=== PATIENT | male | born 1960 | race Caucasian/White ===

== ENCOUNTER 2018-11-27 19:20 | Observation (INO) | payer OTHER ==
--- NOTE | 2018-11-27 20:31 | C.PDOC ---
History Of Present Illness 57 year old male presents to ED with complaint of dizziness for the past 2 days. Patient states that there was improvement , but then the symptoms returned. Patient states that his symptoms are worse when he walks, is lying down, and is standing. Patient denies trauma, fever, chills. Time Seen by Provider: 11/27/18 20:31 Chief Complaint (Nursing): Dizziness/Lightheaded History Per: Patient History/Exam Limitations: no limitations Onset/Duration Of Symptoms: Days (2) Current Symptoms Are (Timing): Still Present Activity At Onset Of Symptoms: Lying, Sitting, Walking Seizure Or Post-ictal Symptoms: None Fall Associated With With Symptoms: No Severity: None Past Medical History Reviewed: Historical Data, Nursing Documentation, Vital Signs Vital Signs: Last Vital Signs Temp 98.4 F 11/27/18 19:28 Pulse 70 11/27/18 20:20 Resp 16 11/27/18 20:20 BP 155/93 H 11/27/18 20:20 Pulse Ox 100 11/27/18 20:20 - Medical History PMH: No Chronic Diseases Surgical History: No Surg Hx Family History: States: Unknown Family Hx - Social History Hx Alcohol Use: No Hx Substance Use: No - Immunization History Hx Tetanus Toxoid Vaccination: No Hx Influenza Vaccination: No Hx Pneumococcal Vaccination: No Review Of Systems Constitutional: Negative for: Fever, Chills Cardiovascular: Negative for: Chest Pain Gastrointestinal: Negative for: Nausea, Vomiting Neurological: Positive for: Dizziness. Negative for: Weakness, Numbness Physical Exam - Physical Exam Appears: Non-toxic, Other (speaking complete sentences) Skin: Warm, Dry Head: Atraumatic, Normacephalic Eye(s): bilateral: Normal Inspection, PERRL, EOMI, Other (no nystagmus) Ear(s): Bilateral: Normal Throat: Other (oropharynx clear) Neck: Supple Chest: Symmetrical, No Deformity Cardiovascular: Rhythm Regular, No Murmur Respiratory: No Accessory Muscle Use, No Rales, No Rhonchi, No Wheezing Gastrointestinal/Abdominal: Soft, No Tenderness Neurological/Psych: Oriented x3, Other (difficulty ambulating) ED Course And Treatment - Laboratory Results Result Diagrams: 11/27/18 20:47 11/27/18 20:47 ECG: Interpreted By Me, Viewed By Me ECG Rhythm: Sinus Rhythm (66), Nonspecific Changes O2 Sat by Pulse Oximetry: 100 (in RA) Pulse Ox Interpretation: Normal - Radiology CXR: Interpreted by Me, Viewed By Me CXR Interpretation: No: Infiltrates, Fracture, Pnemothorax - CT Scan/US Head CT Other Rad Studies (CT/US): Interpreted By Me, Read By Radiologist CT/US Interpretation: IMPRESSION: No acute intracranial abnormality. Progress Note: Head CT, EKG, and CXR. Labs ordered with CBC and troponin. Patient given Antivert PO, IV fluids, and Zofran IVP. NIHSS Stroke Scale 2 - Date/Time Evaluation Performed Date Performed: 11/27/18 Time Performed: 20:13 When Was NIHSS Performed: Baseline - How Severe is the Stroke Level of Consciousness: 0=Alert LOC to Questions: 0=Both comments correct LOC to commands: 0=Obeys both correctly Best Gaze: 0=Normal Visual: 0=No visual loss Facial: 0=Normal Motor Arm - Left: 0=No drift Motor Arm - Right: 0=No drift Motor Leg - Left: 0=No drift Motor Leg - Right: 0=No drift Limb Ataxia: 0=Absent Sensory: 0=Normal Best Language: 0=No aphasia Dysarthia: 0=Normal articulation Extinction & Inattention (Neglect): 0=Normal, no object Score: 0 Disposition Discussed With : Mounika Rosado Comment: accepted the pt on his service and took over the care at 11:12 PM Doctor Will See Patient In The: Hospital Counseled Patient/Family Regarding: Studies Performed, Diagnosis - Disposition Disposition: HOSPITALIZED Disposition Time: 00:00 Condition: FAIR Forms: [facility] (Pashto) - POA Present On Arrival: None - Clinical Impression Clinical Impression: Dizziness, Ambulatory dysfunction, Tinnitus - Scribe Statement The provider has reviewed the documentation as recorded by the Scribe (Milla Vasquez) All medical record entries made by the Scribe were at my direction and personally dictated by me. I have reviewed the chart and agree that the record accurately reflects my personal performance of the history, physical exam, medical decision making, and the department course for this patient. I have also personally directed, reviewed, and agree with the discharge instructions and disposition. Decision To Admit - Pt Status Changed To: Hospital Disposition Of: Observation - . Bed Request Type: Regular Admitting Physician: Mounika Rosado Patient Diagnosis: Dizziness, Ambulatory dysfunction, Tinnitus
[2018-11-27 20:52] LABS: BASO % 0.6 % (0.0-2.0); EOS # 0.2 K/uL (0.0-0.7); EOS % 2.2 % (0.0-4.0); HEMOGLOBIN 18.3 g/dL (12.0-18.0); LYMPH # 2.1 K/uL (1.0-4.3); LYMPH % 27.1 % (20.0-40.0); MEAN CELL VOLUME 85.7 fL (80.0-94.0); MEAN CORPUSCULAR HEMOGLOBIN 28.5 pg (27.0-31.0); MEAN CORPUSCULAR HGB CONC 33.3 g/dL (33.0-37.0); MEAN PLATELET VOLUME 9.7 fL (7.2-11.7); MONO # 0.4 K/uL (0.0-0.8); MONO % 5.2 % (0.0-10.0); NEUT # 4.9 K/uL (1.8-7.0); NEUT % 64.9 % (50.0-75.0); RBC 6.41 Mil/uL (4.40-5.90); RED CELL DISTRIBUTION WIDTH 14.7 % (11.5-14.5); WHITE BLOOD COUNT 7.6 K/uL (4.8-10.8)
[2018-11-27 21:04] LABS: ALB/GLOB RATIO 1.7 (1.0-2.1); ALBUMIN 4.7 g/dL (3.5-5.0); ALT/SGPT 22 U/L (21-72); AST/SGOT 22 U/L (17-59); BLOOD UREA NITROGEN 11 mg/dL (9-20); CALCIUM 9.6 mg/dl (8.6-10.4); GFR NON-AFRICAN AMERICAN > 60
[2018-11-27] MEDS ORDERED: Sodium Chloride 0.9% 1,000 ML IV ONE (21:23)
[2018-11-27 21:59] LABS: URINE BILIRUBIN NEGATIVE (NEGATIVE); URINE BLOOD NEGATIVE (NEGATIVE); URINE CLARITY Clear (Clear); URINE COLOR Yellow (YELLOW); URINE GLUCOSE (UA) NORMAL (Normal); URINE LEUKOCYTE ESTERASE NEG Leu/uL (Negative); URINE PROTEIN NEGATIVE (NEGATIVE); URINE UROBILINOGEN NORMAL mg/dL (0.2-1.0)
[2018-11-28] MEDS ORDERED: Iodixanol 320 MG/ML 100 ML BOTTLE IV ONE (00:13)
[2018-11-28 05:32] LABS: CK-MB 0.46 ng/mL (0.0-3.38); TROPONIN I 0.012 ng/mL (0.00-0.120)
--- NOTE | 2018-11-28 08:05 | CP.PCM.HP ---
History of Present Illness - History of Present Illness History of Present Illness: 57-year-old male with no significant past medical history like diabetes or hypertension came because of dizziness which started around 2 days ago especially feels like he is spinning with little improvement and eventually patient came to the emergency room and was hospitalized patient blood pressure on arrival was 115/93 patient denies any signs symptoms of URI patient denies any TIA-like symptoms patient denies any trauma patient denies nausea vomiting fever chills chest pain patient claims the symptom is worse especially on lying down patient denies any discharge Patient's hemoglobin is 11.[address] scan of the head no acute intracranial abnormality chest x-ray no infiltrate Present on Admission - Present on Admission Any Indicators Present on Admission: No Past Patient History - Past Social History Smoking Status: Never Smoked - PSYCHIATRIC Hx Substance Use: No - SURGICAL HISTORY Hx Surgeries: No - ANESTHESIA Hx Anesthesia: No Meds Allergies/Adverse Reactions: Allergies Allergy/AdvReac Type Severity Reaction Status Date / Time No Known Allergies Allergy Verified 11/27/18 19:31 Physical Exam - Constitutional Appears: Well - Head Exam Head Exam: ATRAUMATIC, NORMAL INSPECTION, NORMOCEPHALIC - Eye Exam Eye Exam: EOMI, Normal appearance, PERRL Pupil Exam: NORMAL ACCOMODATION, PERRL - ENT Exam ENT Exam: Mucous Membranes Moist, Normal Exam - Neck Exam Neck exam: Positive for: Normal Inspection - Respiratory Exam Respiratory Exam: Decreased Breath Sounds - Cardiovascular Exam Cardiovascular Exam: REGULAR RHYTHM, +S1, +S2 - GI/Abdominal Exam GI & Abdominal Exam: Diminished Bowel Sounds, Soft - Rectal Exam Rectal Exam: Deferred Results - Vital Signs Recent Vital Signs: Last Vital Signs Temp 97.4 F L 11/28/18 07:00 Pulse 83 11/28/18 07:00 Resp 20 11/28/18 07:00 BP 175/102 H 11/28/18 07:00 Pulse Ox 96 11/28/18 07:00 - Labs Result Diagrams: 11/27/18 20:47 11/27/18 20:47 Labs: Laboratory Results - last 24 hr 11/27/18 11/27/18 11/27/18 20:13 20:47 20:47 WBC 7.6 RBC 6.41 H Hgb 18.3 H Hct 54.9 H MCV 85.7 MCH 28.5 MCHC 33.3 RDW 14.7 H Plt Count 242 MPV 9.7 Neut % (Auto) 64.9 Lymph % (Auto) 27.1 [place] % (Auto) 5.2 Eos % (Auto) 2.2 Baso % (Auto) 0.6 Neut # (Auto) 4.9 Lymph # (Auto) 2.1 [place] # (Auto) 0.4 Eos # (Auto) 0.2 Baso # (Auto) 0.0 Sodium 138 Potassium 3.5 L Chloride 102 Carbon Dioxide 26 Anion Gap 13 BUN 11 Creatinine 1.0 Est GFR ( Amer) > 60 Est GFR (Non-Af Amer) > 60 POC Glucose (mg/dL) 113 H Random Glucose 109 Calcium 9.6 Total Bilirubin 0.8 AST 22 ALT 22 Alkaline Phosphatase 65 Total Creatine Kinase CK-MB (Mass) Troponin I < 0.0120 Total Protein 7.5 Albumin 4.7 Globulin 2.8 Albumin/Globulin Ratio 1.7 Urine Color Urine Clarity Urine pH Ur Specific [place] Urine Protein Urine Glucose (UA) Urine Ketones Urine Blood Urine Nitrate Urine Bilirubin Urine Urobilinogen Ur Leukocyte Esterase Urine WBC (Auto) Urine RBC (Auto) 11/27/18 11/28/18 21:31 04:56 WBC RBC Hgb Hct MCV MCH MCHC RDW Plt Count MPV Neut % (Auto) Lymph % (Auto) [place] % (Auto) Eos % (Auto) Baso % (Auto) Neut # (Auto) Lymph # (Auto) [place] # (Auto) Eos # (Auto) Baso # (Auto) Sodium Potassium Chloride Carbon Dioxide Anion Gap BUN Creatinine Est GFR ( Amer) Est GFR (Non-Af Amer) POC Glucose (mg/dL) Random Glucose Calcium Total Bilirubin AST ALT Alkaline Phosphatase Total Creatine Kinase 93 CK-MB (Mass) 0.46 Troponin I 0.0120 Total Protein Albumin Globulin Albumin/Globulin Ratio Urine Color Yellow Urine Clarity Clear Urine pH 5.0 Ur Specific [place] 1.010 Urine Protein Negative Urine Glucose (UA) Normal Urine Ketones Negative Urine Blood Negative Urine Nitrate Negative Urine Bilirubin Negative Urine Urobilinogen Normal Ur Leukocyte Esterase Neg Urine WBC (Auto) < 1 Urine RBC (Auto) < 1 Assessment & Plan - Assessment and Plan (Free Text) Plan: CT scan negative no chest x-ray Chest x-ray normal gi and dvt prophylaxis Antivert Neurology consultations who has ordered MRI to rule out [employer] stroke Meclizine every 8 Plavix Lisinopril 5 mg daily Monitor the blood pressure Follow-up with neurologist recommendations Carotid Doppler kcl supplemnetation
[2018-11-28] MEDS: Nitroglycerin 2% Ointment Foilpak UD TOP PRN (08:38)
--- NOTE | 2018-11-28 08:45 | CT ---
Date of service: 11/27/2018 PROCEDURE: CT HEAD WITHOUT CONTRAST. HISTORY: dizziness COMPARISON: None available. TECHNIQUE: Axial computed tomography images were obtained through the head/brain without intravenous contrast. Radiation dose: Total exam DLP = 952.56 mGy-cm. This CT exam was performed using one or more of the following dose reduction techniques: Automated exposure control, adjustment of the mA and/or kV according to patient size, and/or use of iterative reconstruction technique. FINDINGS: HEMORRHAGE: No intracranial hemorrhage. BRAIN: No mass effect or edema. No atrophy or chronic microvascular ischemic changes. VENTRICLES: Unremarkable. No hydrocephalus. CALVARIUM: Unremarkable. PARANASAL SINUSES: Mild mucosal thickening and opacification of the sphenoid sinus. MASTOID AIR CELLS: Unremarkable as visualized. No inflammatory changes. OTHER FINDINGS: None. IMPRESSION: No acute intracranial abnormality. Mild sinus mucosal disease. If symptoms persists, consider correlation with MRI. A preliminary report was generated at 9:12 p.m. on 11/27/[address] Dante Bourgeois from [facility].
[2018-11-28] MEDS: Potassium Chloride 10 mEq ER Tab PO SCH (09:17)
[2018-11-28] MEDS: Enoxaparin 40 mg Syringe SC SCH (09:17)
--- NOTE | 2018-11-28 09:41 | RAD ---
Date of service: 11/27/2018 HISTORY: Shortness of breath COMPARISON: None available. TECHNIQUE: 1 view obtained. FINDINGS: LUNGS: Small 6 millimeter nodular density seen in the lateral aspect of the right midlung zone. This may represent confluence of shadows with ribs and vessels however correlation with prior x-ray and or chest CT would be helpful for further evaluation to exclude pulmonary nodule. PLEURA: No significant pleural effusion identified, no pneumothorax apparent. CARDIOVASCULAR: No aortic atherosclerotic calcification present. Normal cardiac size. No pulmonary vascular congestion. OSSEOUS STRUCTURES: No significant abnormalities. VISUALIZED UPPER ABDOMEN: Normal. OTHER FINDINGS: None. IMPRESSION: Small 6 millimeter nodular density seen in the lateral aspect of the right midlung zone. This may represent confluence of shadows with ribs and vessels however correlation with prior x-ray and or chest CT would be helpful for further evaluation to exclude pulmonary nodule. This case was placed in the PA review folder.
--- NOTE | 2018-11-28 09:58 | CP.PCM.PN ---
Subjective - Date & Time of Evaluation Date of Evaluation: 11/28/18 Time of Evaluation: 09:56 - Subjective Subjective: Medicine Progress Note: Patient seen and examined at bedside. Per nursing no acute events occurred overnight .Patient denies any fevers, chills, headaches, dizziness, changes in vision, abdominal pain, or any other complaints. Objective - Vital Signs/Intake and Output Vital Signs (last 24 hours): Temp Pulse Resp BP Pulse Ox 97.4 F L 81 20 158/96 H 96 11/28/18 07:00 11/28/18 09:16 11/28/18 07:00 11/28/18 09:16 11/28/18 07:00 - Medications Medications: Current Medications Clopidogrel Bisulfate (Plavix) 75 mg PO DAILY [facility] Last Admin: 11/28/18 09:17 Dose: 75 mg Enoxaparin Sodium (Lovenox) 40 mg SC DAILY [facility] Last Admin: 11/28/18 09:17 Dose: 40 mg Famotidine (Pepcid) 20 mg PO BID [facility] Last Admin: 11/28/18 09:17 Dose: 20 mg Lisinopril (Zestril) 5 mg PO DAILY [facility] Last Admin: 11/28/18 09:17 Dose: 5 mg Meclizine HCl (Antivert) 25 mg PO Q8 [facility] Last Admin: 11/28/18 06:27 Dose: 25 mg Nitroglycerin (Nitro-Bid 2% Oint) 1 ea TOP Q6H PRN PRN Reason: Sbp greater than 160 Last Admin: 11/28/18 08:38 Dose: 1 ea Potassium Chloride (Klor-Con 10) 10 meq PO BRK [facility] Last Admin: 11/28/18 09:17 Dose: 10 meq - Labs Labs: 11/27/18 20:47 11/27/18 20:47 - Head Exam Head Exam: ATRAUMATIC, NORMAL INSPECTION - Eye Exam Eye Exam: EOMI, Normal appearance, PERRL Pupil Exam: NORMAL ACCOMODATION - ENT Exam ENT Exam: Mucous Membranes Moist, Normal Oropharynx - Respiratory Exam Respiratory Exam: Clear to Ausculation Bilateral, NORMAL BREATHING PATTERN. absent: Prolonged Expiratory Phase, Respiratory Distress - Cardiovascular Exam Cardiovascular Exam: REGULAR RHYTHM, +S1 - GI/Abdominal Exam GI & Abdominal Exam: Soft, Normal Bowel Sounds. absent: Hyperactive Bowel Sounds - Back Exam Back Exam: NORMAL INSPECTION. absent: CVA tenderness (R), paraspinal tenderness - Neurological Exam Neurological Exam: Alert, Awake, CN II-XII Intact, Oriented x3 - Psychiatric Exam Psychiatric exam: Normal Affect, Normal Mood - Skin Skin Exam: Dry, Intact. absent: Diaphoretic, Pallor Assessment and Plan - Assessment and Plan (Free Text) Plan: Dizziness Troponin (-)x2. Will f/u with final troponin Head ct:No acute intracranial abnormality.Mild sinus mucosal disease.If symptoms persists, consider correlation with MRI. CTA Head/Neck: There is no evidence of dissection, occlusion or significant stenosis. Marked asymmetry of the vertebral arteries right-sided which is hypoplastic compared to the left side. Note is made of an elliptical shaped mass lesion right lung apex which is of uncertain etiology and may be postinflammatory however neoplasm must be excluded. Recommend follow-up CT scan of the chest.. Biopsy should be considered as well to exclude primary carcinoma.. Biapical pleural thickening and parenchymal scarring right greater than left Brain MRI ordered. Will f/u with results. Echocardiogram ordered. Will f/u with results. Chest ct ordered .Will f/u with results Thyroid, hemoglobin a1c, and Homocysteine levels ordered. Will f/u with results. Neurology Dr. Bradford consulted--> Help appreciated Medications: Antivert 25mg PO Q8 Polycythemia -Hgb: 18.3 on admission -Heme/onc Dr. Prasad consulted--> Help appreciated. Ellipitcal shaped mass lesion right lung apex -Chest ct ordered. Will f/u with results. PPX -Lovenox 40mg SC DAILY -Pepcid 20mg PO BID Dispo: F/u with Chest ct, brain mri and echocardiogram final reads. Plan discussed with Attending Dr. Mary Rosado. Sheng Sanchez, PGY-2
[2018-11-28] MEDS ORDERED: Influenza Vaccine 60 mcg/0.5 mL SYR (4YR UP) IM ONE (10:00)
--- NOTE | 2018-11-28 12:53 | CT ---
Date of service: 11/28/2018 PROCEDURE: CT Angiography of the neck and brain with contrast HISTORY: Dizziness COMPARISON: None. TECHNIQUE: Contiguous axial images of the neck and brain were obtained from the level of the vertex of the skull to the superior mediastinum in the arteriographic phase of enhancement. Coronal and sagittal reformats or also generated. IV contrast dose: Radiation dose: Total exam DLP = 563.43 mGy-cm. This CT exam was performed using one or more of the following dose reduction techniques: Automated exposure control, adjustment of the mA and/or kV according to patient size, and/or use of iterative reconstruction technique. FINDINGS: The aortic arch and origins of the great vessels widely patent with no significant calcified atherosclerotic plaque disease. The common carotid arteries are also widely patent without evidence of significant stenosis or dissection. The distal internal carotid arteries including the petrous cavernous and supraclinoid segments also widely patent. Both vertebral arteries are patent throughout left-sided which is much larger in caliber/more dominant than the hypoplastic appearing right vertebral artery. The distal basilar artery is diminutive in size although patent. There is asymmetry of the A1 segments right-side of which is hypoplastic in appearance. The distal branches of the anterior middle and posterior cerebral arteries are patent and relatively symmetric in size. No evidence of large vascular malformation. OTHER FINDINGS: There is an elliptical shaped 19 mm x 11 mm parenchymal nodule right lung apex with some associated scarring and or spiculation along its superior and medial borders. Neoplasm should be excluded. Recommend follow-up CT scan of the chest. Consider follow-up biopsy. Biopsy or PET-CT scan. Note made of chronic pleural thickening and parenchymal scarring both lung apices right greater than left.. IMPRESSION: There is no evidence of dissection, occlusion or significant stenosis. Marked asymmetry of the vertebral arteries right-sided which is hypoplastic compared to the left side. Note is made of an elliptical shaped mass lesion right lung apex which is of uncertain etiology and may be postinflammatory however neoplasm must be excluded. Recommend follow-up CT scan of the chest.. Biopsy should be considered as well to exclude primary carcinoma.. Biapical pleural thickening and parenchymal scarring right greater than left Note that this report was placed in PA review folder for follow up. Case also discussed with emergency room WILLIAN Feliz at approximately 12:46 p.m. with written down and read back verification.
--- NOTE | 2018-11-28 14:00 | MRI ---
Date of service: 11/28/2018 PROCEDURE: MRI BRAIN WITHOUT CONTRAST HISTORY: [facility] - [employer] COMPARISON: Comparison made with prior CT scan and CTA brain dated earlier same day TECHNIQUE: Multiplanar, multisequence MR images of the brain were obtained without intravenous contrast enhancement. FINDINGS: HEMORRHAGE: No acute parenchymal, subarachnoid or extra-axial hemorrhage. No evidence of hemosiderin deposition identified on gradient echo weighted sequence. DWI: No evidence of an acute or early subacute infarction seen on diffusion imaging.. BRAIN PARENCHYMA: Mild periventricular white matter ischemic changes are present most notably in the Claudine frontal horn regions. In addition, there are multiple more discrete chronic appearing ischemic changes scattered about the deep and subcortical white matter of both cerebral hemispheres right greater than left. None of the changes exhibit restricted diffusion. No obvious parenchymal nor extra-axial mass or collection seen on this noncontrast exam. Scattered the numerous tiny perivascular spaces seen within the basal nuclei and to a lesser degree deep white matter both cerebral hemispheres. Incidental note is made of a curvilinear focus of increased T2 signal in the right thalamus that is of uncertain etiology however the possibility of a incidental small venous angioma cannot be completely excluded. Mild superior parietal cortical atrophic changes VENTRICLES: No obstructive hydrocephalus. CRANIUM: Unremarkable. ORBITS: Orbits and contents grossly unremarkable. PARANASAL SINUSES/MASTOIDS: Note again made of a mucous retention cyst or left maxillary antrum. Minor mucosal thickening also noted left chamber sphenoid sinus. VASCULAR SYSTEM: Visualized major vascular flow voids at skull base patent. OTHER FINDINGS: None. IMPRESSION: No acute intracranial hemorrhage or infarction. Mild chronic white matter ischemic changes as described. Mild superior parietal cortical atrophic changes Questionable small venous angioma right thalamus
--- NOTE | 2018-11-28 14:07 | VASCLAB ---
Date of service: 11/28/2018 PROCEDURE: Carotid Duplex Exam. HISTORY: ASSESS STENOSIS COMPARISON: None available. TECHNIQUE: Grayscale and duplex Doppler evaluation of the cervical carotid and vertebral arteries were performed. The common carotid, carotid bifurcations and cervical Internal Carotid Artery (ICA) and proximal External Carotid Artery (ECA) were evaluated. The vertebral arteries were evaluated for gross patency and flow direction. Report prepared by Santhosh Pedroza, BS, RVT FINDINGS: RIGHT CAROTID ARTERIES: 1. Common Carotid Artery: No significant focal plaque formation of the right common carotid artery. Maximum Peak Systolic velocity: 85 cm/sec: End-diastolic velocity 19 cm/sec. 2. Carotid Bifurcation: plaque formation. Maximum Peak Systolic velocity: 77 cm/sec: End-diastolic velocity 17 cm/sec. 3. Internal Carotid Artery: Plaque description: 3.1. Proximal Segment: Peak systolic velocity 59 cm/sec: End-diastolic velocity 15 cm/sec - % stenosis 0-15% 3.2. Middle Segment: Peak systolic velocity 58 cm/sec: End-diastolic velocity 20 cm/sec - % stenosis 0-15% 3.3. Distal Segment: Peak systolic velocity 51 cm/sec: End-diastolic velocity 19 cm/sec - % stenosis 0-15% 4. External Carotid Artery: No significant focal plaque formation. Peak systolic velocity 104 cm/sec 5. ICA/CCA Ratio: 0.9 LEFT CAROTID ARTERIES: 1. Common Carotid Artery: No significant focal plaque formation of the left common carotid artery. Maximum Peak Systolic velocity: 103 cm/sec: End-diastolic velocity 23 cm/sec. 2. Carotid Bifurcation: plaque formation. Maximum Peak Systolic velocity: 76 cm/sec: End-diastolic velocity 17 cm/sec. 3. Internal Carotid Artery: Plaque description: 3.1. Proximal Segment: Peak systolic velocity 84 cm/sec: End-diastolic velocity 23 cm/sec - % stenosis 0-15% 3.2. Middle Segment: Peak systolic velocity 64 cm/sec: End-diastolic velocity 27 cm/sec - % stenosis 0-15% 3.3. Distal Segment: Peak systolic velocity 72 cm/sec: End-diastolic velocity 22 cm/sec - % stenosis 0-15% 4. External Carotid Artery: No significant focal plaque formation. Peak systolic velocity 145 cm/sec 5. ICA/CCA Ratio: 0.8 VERTEBRAL ARTERIES: 1. Right Vertebral Artery: The right vertebral artery flow direction is antegrade. 2. Left Vertebral Artery: The left vertebral artery flow direction is antegrade. OTHER FINDINGS: 1. Right Brachial Blood pressure: 136 mmHg. 2. Left Brachial Blood pressure: 130 mmHg. 3. No atherosclerotic calcification present IMPRESSION: RIGHT: Duplex scan does not suggest hemodynamically significant stenosis of the right extracranial carotid arteries. LEFT: Duplex scan does not suggest hemodynamically significant stenosis of the left extracranial carotid arteries.
--- NOTE | 2018-11-28 14:23 | CP.PCM.CON ---
History of Present Illness - History of Present Illness History of Present Illness: CONSULT DICTATED ASTASIA ABASALIS - ? THALAMIC / CEREBELLAR DYSFUNCTION CBC - POLYCYTHEMIA STROKE PROPHYLAXIS HEMATOLOGY CONSULTATION PT Past Patient History - Past Social History Smoking Status: Never Smoked - PSYCHIATRIC Hx Substance Use: No - SURGICAL HISTORY Hx Surgeries: No - ANESTHESIA Hx Anesthesia: No Meds Allergies/Adverse Reactions: Allergies Allergy/AdvReac Type Severity Reaction Status Date / Time No Known Allergies Allergy Verified 11/27/18 19:31 - Medications Medications: Current Medications Clopidogrel Bisulfate (Plavix) 75 mg PO DAILY [facility] Last Admin: 11/28/18 09:17 Dose: 75 mg Enoxaparin Sodium (Lovenox) 40 mg SC DAILY [facility] Last Admin: 11/28/18 09:17 Dose: 40 mg Famotidine (Pepcid) 20 mg PO BID [facility] Last Admin: 11/28/18 09:17 Dose: 20 mg Lisinopril (Zestril) 5 mg PO DAILY [facility] Last Admin: 11/28/18 09:17 Dose: 5 mg Losartan Potassium (Cozaar) 25 mg PO DAILY [facility] Meclizine HCl (Antivert) 25 mg PO Q8 [facility] Last Admin: 11/28/18 13:43 Dose: 25 mg Nitroglycerin (Nitro-Bid 2% Oint) 1 ea TOP Q6H PRN PRN Reason: Sbp greater than 160 Last Admin: 11/28/18 08:38 Dose: 1 ea Pneumococcal Polyvalent Vaccine (Pneumovax 23 Vaccine) 0.5 ml IM .ONCE ONE Stop: 11/29/18 10:01 Potassium Chloride (Klor-Con 10) 10 meq PO BRK [facility] Last Admin: 11/28/18 09:17 Dose: 10 meq Rosuvastatin Calcium (Crestor) 10 mg PO HS [facility] Results - Vital Signs Recent Vital Signs: Last Vital Signs Temp 97.4 F L 11/28/18 07:00 Pulse 81 11/28/18 09:16 Resp 20 11/28/18 07:00 BP 158/96 H 11/28/18 09:16 Pulse Ox 96 11/28/18 07:00 - Labs Result Diagrams: 11/27/18 20:47 11/27/18 20:47 Labs: Laboratory Results - last 24 hr 11/27/18 11/27/18 11/27/18 20:13 20:47 20:47 WBC 7.6 RBC 6.41 H Hgb 18.3 H Hct 54.9 H MCV 85.7 MCH 28.5 MCHC 33.3 RDW 14.7 H Plt Count 242 MPV 9.7 Neut % (Auto) 64.9 Lymph % (Auto) 27.1 [place] % (Auto) 5.2 Eos % (Auto) 2.2 Baso % (Auto) 0.6 Neut # (Auto) 4.9 Lymph # (Auto) 2.1 [place] # (Auto) 0.4 Eos # (Auto) 0.2 Baso # (Auto) 0.0 Sodium 138 Potassium 3.5 L Chloride 102 Carbon Dioxide 26 Anion Gap 13 BUN 11 Creatinine 1.0 Est GFR ( Amer) > 60 Est GFR (Non-Af Amer) > 60 POC Glucose (mg/dL) 113 H Random Glucose 109 Calcium 9.6 Total Bilirubin 0.8 AST 22 ALT 22 Alkaline Phosphatase 65 Total Creatine Kinase CK-MB (Mass) Troponin I < 0.0120 Total Protein 7.5 Albumin 4.7 Globulin 2.8 Albumin/Globulin Ratio 1.7 Urine Color Urine Clarity Urine pH Ur Specific [place] Urine Protein Urine Glucose (UA) Urine Ketones Urine Blood Urine Nitrate Urine Bilirubin Urine Urobilinogen Ur Leukocyte Esterase Urine WBC (Auto) Urine RBC (Auto) 11/27/18 11/28/18 11/28/18 21:31 04:56 13:58 WBC RBC Hgb Hct MCV MCH MCHC RDW Plt Count MPV Neut % (Auto) Lymph % (Auto) [place] % (Auto) Eos % (Auto) Baso % (Auto) Neut # (Auto) Lymph # (Auto) [place] # (Auto) Eos # (Auto) Baso # (Auto) Sodium Potassium Chloride Carbon Dioxide Anion Gap BUN Creatinine Est GFR ( Amer) Est GFR (Non-Af Amer) POC Glucose (mg/dL) Random Glucose Calcium Total Bilirubin AST ALT Alkaline Phosphatase Total Creatine Kinase 93 70 CK-MB (Mass) 0.46 Troponin I 0.0120 Total Protein Albumin Globulin Albumin/Globulin Ratio Urine Color Yellow Urine Clarity Clear Urine pH 5.0 Ur Specific [place] 1.010 Urine Protein Negative Urine Glucose (UA) Normal Urine Ketones Negative Urine Blood Negative Urine Nitrate Negative Urine Bilirubin Negative Urine Urobilinogen Normal Ur Leukocyte Esterase Neg Urine WBC (Auto) < 1 Urine RBC (Auto) < 1
[2018-11-28 14:31] LABS: CK-MB 0.34 ng/mL (0.0-3.38)
[2018-11-28 14:37] LABS: FREE T4 0.83 ng/dL (0.78-2.19)
[2018-11-28 15:25] LABS: FOLATE 6.7 ng/mL
--- NOTE | 2018-11-28 17:29 | CT ---
Date of service: 11/28/2018 CT chest without IV contrast Indication: pulmonary lesion Technique: Contiguous axial images were obtained through the chest without intravenous contrast enhancement. Sagittal and coronal reconstructions were generated and reviewed. This CT exam was performed using 1 or more of the following dose reduction techniques: Automated exposure control, adjustment of the MAA and/or kV according to patient size, and/or use of iterative reconstruction technique. Radiation dose (DLP): 646.89 MGy-cm. Comparison: Chest x-ray performed 11/27/18 Findings: Visualized portions of the inferior thyroid gland appear unremarkable. The mediastinal and hilar vascular structures appear within normal limits. The heart appears within normal limits of size. Right apical scarring/fibrosis. Mild dependent bibasilar atelectasis. No pleural effusion. No pneumothorax. 6 x 10 mm right upper lobe calcified nodule (series 4, image 46). 10 mm right upper lobe noncalcified nodule (image 31). Small hiatal hernia/distal esophageal wall thickening. Limited visualization of the noncontrast upper abdomen: 2.5 x 3.1 cm low-density right renal mass measures approximately 23 Hounsfield units, indeterminate. Bilateral gynecomastia. Impression: 10 mm right upper lobe noncalcified nodule. Recommend further evaluation with biopsy, PET- CT, or follow-up CT at 3 months, and 9 months, and 24 months. 6 x 10 mm right upper lobe calcified nodule. Right apical scarring/fibrosis. Mild dependent bibasilar atelectasis. 2.5 x 3.1 cm low-density right renal mass measures approximately 23 Hounsfield units, indeterminate. Recommend correlation with renal ultrasound. Small hiatal hernia/distal esophageal wall thickening.
--- NOTE | 2018-11-28 18:26 | CP.PCM.CON ---
History of Present Illness - History of Present Illness History of Present Illness: 57 year old male with a history of HTN, DM, presenting with vertigo, found to have elevated BP and erythrocytosis. The patient notes to vertigo for 2 days and came to the hospital. He was found to have an elevated BP and hgb of 18.3. He denies blood problems in the past. He denies abnormal bleeding and bruising. A CT chest revealed a RUL 1cm lesion and a 2.5cm right renal lesion. Past medical history: DM, HTN Past surrgical history: Denies Family history: Denies hematologic and oncologic problems Social history: Denies tobacco, alcohol, and illicit drug use. Allergies: NKA Review of systems: All remaining review of systems including HEENT, cardiovascular, respiratory, gastrointestinal, genitourinary, musculoskeletal, dermatologic, neurologic, and psychiatric are negative unless mentioned in the HPI. Past Patient History - Past Social History Smoking Status: Never Smoked - PSYCHIATRIC Hx Substance Use: No - SURGICAL HISTORY Hx Surgeries: No - ANESTHESIA Hx Anesthesia: No Meds Allergies/Adverse Reactions: Allergies Allergy/AdvReac Type Severity Reaction Status Date / Time No Known Allergies Allergy Verified 11/27/18 19:31 - Medications Medications: Current Medications Clopidogrel Bisulfate (Plavix) 75 mg PO DAILY [facility] Last Admin: 11/28/18 09:17 Dose: 75 mg Enoxaparin Sodium (Lovenox) 40 mg SC DAILY [facility] Last Admin: 11/28/18 09:17 Dose: 40 mg Famotidine (Pepcid) 20 mg PO BID [facility] Last Admin: 11/28/18 17:53 Dose: 20 mg Lisinopril (Zestril) 5 mg PO DAILY [facility] Last Admin: 11/28/18 09:17 Dose: 5 mg Losartan Potassium (Cozaar) 25 mg PO DAILY [facility] Meclizine HCl (Antivert) 25 mg PO Q8 [facility] Last Admin: 11/28/18 13:43 Dose: 25 mg Nitroglycerin (Nitro-Bid 2% Oint) 1 ea TOP Q6H PRN PRN Reason: Sbp greater than 160 Last Admin: 11/28/18 08:38 Dose: 1 ea Pneumococcal Polyvalent Vaccine (Pneumovax 23 Vaccine) 0.5 ml IM .ONCE ONE Stop: 11/29/18 10:01 Potassium Chloride (Klor-Con 10) 10 meq PO BRK [facility] Last Admin: 11/28/18 09:17 Dose: 10 meq Rosuvastatin Calcium (Crestor) 10 mg PO HS [facility] Physical Exam - Head Exam Head Exam: ATRAUMATIC - Eye Exam Eye Exam: Normal appearance - ENT Exam ENT Exam: Mucous Membranes Dry - Respiratory Exam Respiratory Exam: NORMAL BREATHING PATTERN - Cardiovascular Exam Cardiovascular Exam: +S1, +S2 - GI/Abdominal Exam GI & Abdominal Exam: Normal Bowel Sounds - Extremities Exam Extremities exam: Positive for: normal inspection - Neurological Exam Neurological exam: Oriented x3 - Psychiatric Exam Psychiatric exam: Normal Affect, Normal Mood - Skin Skin Exam: Warm Results - Vital Signs Recent Vital Signs: Last Vital Signs Temp 97.4 F L 11/28/18 07:00 Pulse 81 11/28/18 09:16 Resp 20 11/28/18 07:00 BP 158/96 H 11/28/18 09:16 Pulse Ox 96 11/28/18 07:00 - Labs Result Diagrams: 11/27/18 20:47 11/27/18 20:47 Labs: Laboratory Results - last 24 hr 11/27/18 11/27/18 11/27/18 20:13 20:47 20:47 WBC 7.6 RBC 6.41 H Hgb 18.3 H Hct 54.9 H MCV 85.7 MCH 28.5 MCHC 33.3 RDW 14.7 H Plt Count 242 MPV 9.7 Neut % (Auto) 64.9 Lymph % (Auto) 27.1 [place] % (Auto) 5.2 Eos % (Auto) 2.2 Baso % (Auto) 0.6 Neut # (Auto) 4.9 Lymph # (Auto) 2.1 [place] # (Auto) 0.4 Eos # (Auto) 0.2 Baso # (Auto) 0.0 Sodium 138 Potassium 3.5 L Chloride 102 Carbon Dioxide 26 Anion Gap 13 BUN 11 Creatinine 1.0 Est GFR ( Amer) > 60 Est GFR (Non-Af Amer) > 60 POC Glucose (mg/dL) 113 H Random Glucose 109 Hemoglobin A1c Calcium 9.6 Total Bilirubin 0.8 AST 22 ALT 22 Alkaline Phosphatase 65 Total Creatine Kinase CK-MB (Mass) Troponin I < 0.0120 Total Protein 7.5 Albumin 4.7 Globulin 2.8 Albumin/Globulin Ratio 1.7 Vitamin B12 Folate Homocysteine Free T4 TSH 3rd Generation Urine Color Urine Clarity Urine pH Ur Specific [place] Urine Protein Urine Glucose (UA) Urine Ketones Urine Blood Urine Nitrate Urine Bilirubin Urine Urobilinogen Ur Leukocyte Esterase Urine WBC (Auto) Urine RBC (Auto) 11/27/18 11/28/18 11/28/18 21:31 04:56 13:58 WBC RBC Hgb Hct MCV MCH MCHC RDW Plt Count MPV Neut % (Auto) Lymph % (Auto) [place] % (Auto) Eos % (Auto) Baso % (Auto) Neut # (Auto) Lymph # (Auto) [place] # (Auto) Eos # (Auto) Baso # (Auto) Sodium Potassium Chloride Carbon Dioxide Anion Gap BUN Creatinine Est GFR ( Amer) Est GFR (Non-Af Amer) POC Glucose (mg/dL) Random Glucose Hemoglobin A1c 6.2 Calcium Total Bilirubin AST ALT Alkaline Phosphatase Total Creatine Kinase 93 CK-MB (Mass) 0.46 Troponin I 0.0120 Total Protein Albumin Globulin Albumin/Globulin Ratio Vitamin B12 Folate Homocysteine Free T4 TSH 3rd Generation Urine Color Yellow Urine Clarity Clear Urine pH 5.0 Ur Specific [place] 1.010 Urine Protein Negative Urine Glucose (UA) Normal Urine Ketones Negative Urine Blood Negative Urine Nitrate Negative Urine Bilirubin Negative Urine Urobilinogen Normal Ur Leukocyte Esterase Neg Urine WBC (Auto) < 1 Urine RBC (Auto) < 1 11/28/18 11/28/18 11/28/18 13:58 13:58 13:58 WBC RBC Hgb Hct MCV MCH MCHC RDW Plt Count MPV Neut % (Auto) Lymph % (Auto) [place] % (Auto) Eos % (Auto) Baso % (Auto) Neut # (Auto) Lymph # (Auto) [place] # (Auto) Eos # (Auto) Baso # (Auto) Sodium Potassium Chloride Carbon Dioxide Anion Gap BUN Creatinine Est GFR ( Amer) Est GFR (Non-Af Amer) POC Glucose (mg/dL) Random Glucose Hemoglobin A1c Calcium Total Bilirubin AST ALT Alkaline Phosphatase Total Creatine Kinase 70 CK-MB (Mass) 0.34 Troponin I < 0.0120 Total Protein Albumin Globulin Albumin/Globulin Ratio Vitamin B12 194 L Folate 6.7 Homocysteine 16.1 H Free T4 0.83 TSH 3rd Generation 3.56 Urine Color Urine Clarity Urine pH Ur Specific [place] Urine Protein Urine Glucose (UA) Urine Ketones Urine Blood Urine Nitrate Urine Bilirubin Urine Urobilinogen Ur Leukocyte Esterase Urine WBC (Auto) Urine RBC (Auto) Assessment & Plan (1) Erythrocytosis Assessment and Plan: mild rule out polycythemia vera; JAK2 mutation and EPO level sent noted b12 deficiency; please do not supplement until above w/u resulted as may raise H/H Status: Acute (2) B12 deficiency Assessment and Plan: please do not supplement until polycythemia w/u completed as supplementation may raise H/H Thank you for this interesting consult. Status: Acute
--- NOTE | 2018-11-28 19:56 | CARD ---
APPROVED REPORT Date of service: 11/28/2018 EXAM: Two-dimensional and M-mode echocardiogram with Doppler and color Doppler. Other Information Quality : GoodRhythm : INDICATION Dizziness and Vertigo RISK FACTORS Hypertension 2D DIMENSIONS IVSd1.1 (0.7-1.1cm)LVDd3.8 (3.9-5.9cm) PWd1.0 (0.7-1.1cm)LA [id number] (18-58mL) LVDs2.2 (2.5-4.0cm)FS (%) 40.3 % LVEF (%)71.8 (>50%)LVEF (Hoover's)71.82 % IVC0.00 cm M-Mode DIMENSIONS RVDd1.58 (2.1-3.2cm)Left Atrium (MM)3.73 (2.5-4.0cm) IVSd1.52 (0.7-1.1cm)Aortic Root3.13 (2.2-3.7cm) LVDd3.83 (4.0-5.6cm)Aortic Cusp Exc.2.15 (1.5-2.0cm) PWd1.21 (0.7-1.1cm)FS (%) 43 % LVDs2.19 (2.0-3.8cm)LVEF (%)75 (>50%) Mitral Valve MV E Fbbklata17.8cm/sMV A Pckrfkgf66.5cm/sE/A ratio0.7 TDI Lateral E' Peak V8.09cm/sMedial E' Peak V4.61cm/sE/Lateral E'6.4 E/Medial E'11.2 Tricuspid Valve TR Peak [id number]/sTR Peak Gr.[id number] LEFT VENTRICLE The left ventricle is normal size. There is normal left ventricular wall thickness. The left ventricular function is normal. The left ventricular ejection fraction is within the normal range. 72% No regional wall motion abnormalities noted. Transmitral Doppler flow pattern is Grade I-abnormal relaxation pattern. No left ventricle thrombus noted on this study. There is no ventricular septal defect visualized. There is no left ventricular aneurysm. There is no mass noted in the left ventricle. RIGHT VENTRICLE The right ventricle is normal size. There is normal right ventricular wall thickness. The right ventricular systolic function is normal. ATRIA The left atrium size is normal. The right atrium size is normal. The interatrial septum is intact with no evidence for an atrial septal defect. AORTIC VALVE The aortic valve is normal in structure and function. No aortic regurgitation is present. There is no aortic valvular stenosis. There is no aortic valvular vegetation. MITRAL VALVE The mitral valve is normal in structure and function. There is no evidence of mitral valve prolapse. There is no mitral valve stenosis. There is no mitral valve regurgitation noted. TRICUSPID VALVE The tricuspid valve is normal in structure and function. There is no tricuspid valve regurgitation noted. There is no tricuspid valve prolapse or vegetation. There is no tricuspid valve stenosis. PULMONIC VALVE The pulmonary valve is normal in structure and function. There is no pulmonic valvular regurgitation. There is no pulmonic valvular stenosis. GREAT VESSELS The aortic root is normal in size. The ascending aorta is normal in size. The pulmonary artery is normal. The IVC is normal in size and collapses >50% with inspiration. PERICARDIAL EFFUSION The pericardium appears normal. There is no pleural effusion. <Conclusion> Normal left ventricular rsystolic function Normal Doppler. Transmitral Doppler flow pattern is Grade I-abnormal relaxation pattern.
[2018-11-29 01:02] LABS: CK-MB 0.23 ng/mL (0.0-3.38)
[2018-11-29] MEDS: Nitroglycerin 2% Ointment Foilpak UD TOP PRN (08:09)
[2018-11-29 08:13] LABS: BASO % 0.5 % (0.0-2.0); EOS # 0.2 K/uL (0.0-0.7); HEMOGLOBIN 16.7 g/dL (12.0-18.0); LYMPH # 1.7 K/uL (1.0-4.3); LYMPH % 27.2 % (20.0-40.0); MEAN CELL VOLUME 85.7 fL (80.0-94.0); MEAN CORPUSCULAR HEMOGLOBIN 29.1 pg (27.0-31.0); MEAN PLATELET VOLUME 9.6 fL (7.2-11.7); MONO # 0.4 K/uL (0.0-0.8); MONO % 6.2 % (0.0-10.0); NEUT # 3.8 K/uL (1.8-7.0); NEUT % 63.1 % (50.0-75.0); NRBC % 0.1 % (0.0-2.0); RBC 5.72 Mil/uL (4.40-5.90); RED CELL DISTRIBUTION WIDTH 14.9 % (11.5-14.5); WHITE BLOOD COUNT 6.1 K/uL (4.8-10.8)
[2018-11-29 08:17] LABS: ALB/GLOB RATIO 1.7 (1.0-2.1); ALBUMIN 3.9 g/dL (3.5-5.0); ALT/SGPT 11 U/L (21-72); AST/SGOT 32 U/L (17-59); BLOOD UREA NITROGEN 11 mg/dL (9-20); CALCIUM 8.9 mg/dl (8.6-10.4); GFR NON-AFRICAN AMERICAN > 60
[2018-11-29] MEDS: Potassium Chloride 10 mEq ER Tab PO SCH (08:46)
[2018-11-29 08:57] LABS: FERRITIN 13.6 ng/mL
--- NOTE | 2018-11-29 09:10 | PN ---
DATE: 11/29/2018 TIME OF EVALUATION: 7:05 a.m. NEUROLOGICAL PROBLEM: Mid cerebellar dysfunction. This is probably secondary to hypercoagulable stage. VITAL SIGNS: Blood pressure 145/91, mean artery pressure of 109, respiratory rate 18, pulse rate 65 and regular, temperature 98.1. The patient claims, he feels a little better than yesterday. Still having dizziness. Examination which is unchanged. Mid cerebellar dysfunction again noted, could not able to walk by himself. Workup: MRI of the brain reviewed, no acute pathology is noted. Possible cavernous angioma in right thalamic area. However, CT angiogram is negative. His blood workup, vitamin B12, and folic acid including homocysteine are abnormal numbers. The patient had a hematology consult as well for his polycythemia. His workup is on progress. B12 and folic acid supplements are added with seizure prophylaxis. Physical therapy also called in to improve his gait. Pulmonary workup for his abnormal CT findings. The patient will be followed closely with you. Franco Bradford MD
--- NOTE | 2018-11-29 09:17 | CP.PCM.PN ---
<TellyBhavnam - Last Filed: 11/29/18 14:30> Subjective - Date & Time of Evaluation Date of Evaluation: 11/29/18 Time of Evaluation: 09:17 - Subjective Subjective: Medicine Progress Note - Dr Jayne Rosado's service Patient seen and examined at bedside. Per nursing no acute events overnight. Patient still reports having difficulty with ambulation. He offers no other complaints at this time. Objective - Vital Signs/Intake and Output Vital Signs (last 24 hours): Temp Pulse Resp BP Pulse Ox 97.9 F 68 20 160/106 H 98 11/29/18 07:00 11/29/18 07:00 11/29/18 07:00 11/29/18 07:00 11/29/18 07:00 - Medications Medications: Current Medications Clopidogrel Bisulfate (Plavix) 75 mg PO DAILY [facility] Last Admin: 11/28/18 09:17 Dose: 75 mg Cyanocobalamin (Vitamin B12 1000 Mcg/Ml Inj) 1,000 mcg IM DAILY [facility] Stop: 12/03/18 23:59 Enoxaparin Sodium (Lovenox) 40 mg SC DAILY [facility] Last Admin: 11/28/18 09:17 Dose: 40 mg Famotidine (Pepcid) 20 mg PO BID [facility] Last Admin: 11/28/18 17:53 Dose: 20 mg Lisinopril (Zestril) 5 mg PO DAILY [facility] Last Admin: 11/28/18 09:17 Dose: 5 mg Losartan Potassium (Cozaar) 25 mg PO DAILY [facility] Meclizine HCl (Antivert) 25 mg PO Q8 [facility] Last Admin: 11/29/18 06:07 Dose: 25 mg Nitroglycerin (Nitro-Bid 2% Oint) 1 ea TOP Q6H PRN PRN Reason: Sbp greater than 160 Last Admin: 11/29/18 08:09 Dose: 1 ea Pneumococcal Polyvalent Vaccine (Pneumovax 23 Vaccine) 0.5 ml IM .ONCE ONE Stop: 11/29/18 10:01 Potassium Chloride (Klor-Con 10) 10 meq PO BRK [facility] Last Admin: 11/28/18 09:17 Dose: 10 meq Rosuvastatin Calcium (Crestor) 10 mg PO HS [facility] Last Admin: 11/28/18 21:12 Dose: 10 mg - Labs Labs: 11/29/18 07:50 11/29/18 07:50 - Additional Findings Additional findings: - Head Exam Head Exam: ATRAUMATIC, NORMAL INSPECTION - Eye Exam Eye Exam: EOMI, Normal appearance, PERRL Pupil Exam: NORMAL ACCOMODATION - ENT Exam ENT Exam: Mucous Membranes Moist, Normal Oropharynx - Respiratory Exam Respiratory Exam: Clear to Ausculation Bilateral, NORMAL BREATHING PATTERN. absent: Prolonged Expiratory Phase, Respiratory Distress - Cardiovascular Exam Cardiovascular Exam: REGULAR RHYTHM, +S1 - GI/Abdominal Exam GI & Abdominal Exam: Soft, Normal Bowel Sounds. absent: Hyperactive Bowel Sounds - Back Exam Back Exam: NORMAL INSPECTION. absent: CVA tenderness (R), paraspinal tenderness - Neurological Exam Neurological Exam: Alert, Awake, CN II-XII Intact, Oriented x3 - Psychiatric Exam Psychiatric exam: Normal Affect, Normal Mood - Skin Skin Exam: Dry, Intact. absent: Diaphoretic, Pallor Assessment and Plan - Assessment and Plan (Free Text) Assessment: Dizziness, r/o cardioneurogenic causes Stable, afebrile Troponin negative x 3 On Meclizine 25mg PO Q8H, Plavix 75mg PO daily Homocysteine 16.1, Vitamin B12 194, Thyroid studies normal Patient to continue physical therapy Neurology on consult, Dr Bradford, help appreciated Imaging: Head CT: No acute intracranial abnormality.Mild sinus mucosal disease.If symptoms persists, consider correlation with MRI. CTA Head/Neck: There is no evidence of dissection, occlusion or significant stenosis. Marked asymmetry of the vertebral arteries right-sided which is hypoplastic compared to the left side. Note is made of an elliptical shaped mass lesion right lung apex which is of uncertain etiology and may be postinflammatory however neoplasm must be excluded. Recommend follow-up CT scan of the chest.. Biopsy should be considered as well to exclude primary carcinoma.. Biapical pleural thickening and parenchymal scarring right greater than left Brain MRI: No acute intracranial hemorrhage or infarction. Mild chronic white matter ischemic changes as described. Mild superior parietal cortical atrophic changes. Questionable small venous angioma right thalamus Echocardiogram: Grade I abnormal relaxation pattern Polycythemia Hgb: 18.3 on admission, 16.7 today F/U JAK2 mutation and EPO level Heme/onc Dr. Prasad consulted--> Help appreciated. Vitamin B12 deficiency Vitamin B12 194 Per Heme/onc, hold off on repleting until polycythemia work up completed Hypertension -Cozaar 25mg PO daily, Zestril 5mg PO daily Ellipitcal shaped mass lesion right lung apex -CT chest showed 10 mm right upper lobe noncalcified nodule. Recommend further evaluation with biopsy, PET- CT, or follow-up CT at 3 months, and 9 months, and 24 months. 6 x 10 mm right upper lobe calcified nodule. Right apical scarring/fibrosis. Mild dependent bibasilar atelectasis. 2.5 x 3.1 cm low- density right renal mass measures approximately 23 Hounsfield units, indeterminate. Recommend correlation with renal ultrasound. Small hiatal hernia/distal esophageal wall thickening -F/U renal US PPX -Lovenox 40mg SC DAILY -Pepcid 20mg PO BID Dispo: Continue physical therapy. Will likely d/c tomorrow morning. Plan discussed with Dr Jayne Varner DO PGY-2 <Mounika Rosado - Last Filed: 11/29/18 22:13> Objective - Vital Signs/Intake and Output Vital Signs (last 24 hours): Temp Pulse Resp BP Pulse Ox 98.2 F 84 20 151/88 H 95 11/29/18 16:00 11/29/18 16:00 11/29/18 16:00 11/29/18 16:00 11/29/18 16:00 - Medications Medications: Current Medications Clopidogrel Bisulfate (Plavix) 75 mg PO DAILY [facility] Last Admin: 11/29/18 09:45 Dose: 75 mg Cyanocobalamin (Vitamin B12 1000 Mcg/Ml Inj) 1,000 mcg IM DAILY [facility] Stop: 12/03/18 23:59 Enoxaparin Sodium (Lovenox) 40 mg SC DAILY [facility] Last Admin: 11/29/18 09:45 Dose: 40 mg Famotidine (Pepcid) 20 mg PO BID [facility] Last Admin: 11/29/18 18:10 Dose: 20 mg Lisinopril (Zestril) 5 mg PO DAILY [facility] Last Admin: 11/29/18 09:45 Dose: 5 mg Losartan Potassium (Cozaar) 25 mg PO DAILY [facility] Last Admin: 11/29/18 09:45 Dose: 25 mg Meclizine HCl (Antivert) 25 mg PO Q8 [facility] Last Admin: 11/29/18 21:27 Dose: 25 mg Nitroglycerin (Nitro-Bid 2% Oint) 1 ea TOP Q6H PRN PRN Reason: Sbp greater than 160 Last Admin: 11/29/18 08:09 Dose: 1 ea Potassium Chloride (Klor-Con 10) 10 meq PO BRK [facility] Last Admin: 11/29/18 08:46 Dose: Not Given Rosuvastatin Calcium (Crestor) 10 mg PO HS [facility] Last Admin: 11/29/18 21:28 Dose: 10 mg - Labs Labs: 11/29/18 07:50 11/29/18 07:50 Assessment and Plan (1) Ambulatory dysfunction Status: Acute (2) B12 deficiency Status: Acute (3) Dizziness Status: Acute (4) Erythrocytosis Status: Acute (5) Tinnitus Status: Acute Attending/Attestation - Attestation I have personally seen and examined this patient.: Yes I have fully participated in the care of the patient.: Yes I have reviewed all pertinent clinical information, including history, physical exam and plan: Yes Notes (Text): 11/29/18 22:Patient with the dizziness on Antivert and neuro case seen and d.w staff and resident, concurred with finding and management..
[2018-11-29] MEDS: Enoxaparin 40 mg Syringe SC SCH (09:45)
[2018-11-29] MEDS ORDERED: Pneumococcal 23-Valent Vaccine IM ONE (10:00)
--- NOTE | 2018-11-29 12:51 | CP.PCM.PN ---
Subjective - Date & Time of Evaluation Date of Evaluation: 11/29/18 Time of Evaluation: 10:00 - Subjective Subjective: still dizzy unable to walk pt triede to walk unable to walk bt pt ot said pt can walk pt adv tht he needs ot take medication and follwup with neuro Objective - Vital Signs/Intake and Output Vital Signs (last 24 hours): Temp Pulse Resp BP Pulse Ox 97.9 F 80 20 166/97 H 96 11/29/18 07:00 11/29/18 09:48 11/29/18 07:00 11/29/18 09:48 11/29/18 08:57 - Medications Medications: Current Medications Clopidogrel Bisulfate (Plavix) 75 mg PO DAILY [facility] Last Admin: 11/29/18 09:45 Dose: 75 mg Cyanocobalamin (Vitamin B12 1000 Mcg/Ml Inj) 1,000 mcg IM DAILY [facility] Stop: 12/03/18 23:59 Enoxaparin Sodium (Lovenox) 40 mg SC DAILY [facility] Last Admin: 11/29/18 09:45 Dose: 40 mg Famotidine (Pepcid) 20 mg PO BID [facility] Last Admin: 11/29/18 09:45 Dose: 20 mg Lisinopril (Zestril) 5 mg PO DAILY [facility] Last Admin: 11/29/18 09:45 Dose: 5 mg Losartan Potassium (Cozaar) 25 mg PO DAILY [facility] Last Admin: 11/29/18 09:45 Dose: 25 mg Meclizine HCl (Antivert) 25 mg PO Q8 [facility] Last Admin: 11/29/18 06:07 Dose: 25 mg Nitroglycerin (Nitro-Bid 2% Oint) 1 ea TOP Q6H PRN PRN Reason: Sbp greater than 160 Last Admin: 11/29/18 08:09 Dose: 1 ea Potassium Chloride (Klor-Con 10) 10 meq PO BRK [facility] Last Admin: 11/29/18 08:46 Dose: Not Given Rosuvastatin Calcium (Crestor) 10 mg PO HS [facility] Last Admin: 11/28/18 21:12 Dose: 10 mg - Labs Labs: 11/29/18 07:50 11/29/18 07:50 - Constitutional Appears: Well - Head Exam Head Exam: ATRAUMATIC, NORMAL INSPECTION, NORMOCEPHALIC - Eye Exam Eye Exam: EOMI, Normal appearance, PERRL Pupil Exam: NORMAL ACCOMODATION, PERRL - ENT Exam ENT Exam: Mucous Membranes Moist, Normal Exam - Neck Exam Neck Exam: Full ROM, Normal Inspection. absent: Lymphadenopathy - Respiratory Exam Respiratory Exam: Decreased Breath Sounds - Cardiovascular Exam Cardiovascular Exam: REGULAR RHYTHM, +S1, +S2 - GI/Abdominal Exam GI & Abdominal Exam: Soft, Diminished Bowel Sounds - Rectal Exam Rectal Exam: Deferred - Neurological Exam Neurological Exam: Oriented x3 Assessment and Plan (1) Ambulatory dysfunction Status: Acute (2) B12 deficiency Status: Acute (3) Dizziness Status: Acute (4) Erythrocytosis Status: Acute (5) Tinnitus Status: Acute - Assessment and Plan (Free Text) Plan: vitals reviewed labs reviewed medications reviewed antivert cozaar crestor klor-con 10 lovenox nitro-bid pepcid plavix vitamin b12 zestril antivert pt ot pt ot done today pt was able to walk but pt claims he is still dizzy may need rehab if it doesnot get better Dizziness, r/o cardioneurogenic causes Stable, afebrile Troponin negative x 3 On Meclizine 25mg PO Q8H, Plavix 75mg PO daily Homocysteine 16.1, Vitamin B12 194, Thyroid studies normal Patient to continue physical therapy Neurology on consult, Dr Bradford, help appreciated Imaging: Head CT: No acute intracranial abnormality.Mild sinus mucosal disease.If symptom s persists, consider correlation with MRI. CTA Head/Neck: There is no evidence of dissection, occlusion or significant stenosis. Marked asymmetry of the vertebral arteries right-sided which is hypoplastic compared to the left side. Note is made of an elliptical shaped mass lesion right lung apex which is of uncertain etiology and may be postinflammatory however neoplasm must be excluded. Recommend follow-up CT scan of the chest.. Biopsy should be considered as well to exclude primary carcinoma .. Biapical pleural thickening and parenchymal scarring right greater than left Brain MRI: No acute intracranial hemorrhage or infarction. Mild chronic white matter ischemic changes as described. Mild superior parietal cortical atrophic changes. Questionable small venous angioma right thalamus Echocardiogram: Grade I abnormal relaxation pattern Polycythemia Hgb: 18.3 on admission, 16.7 today F/U JAK2 mutation and EPO level Heme/onc Dr. Prasad consulted--> Help appreciated. Vitamin B12 deficiency Vitamin B12 194 Per Heme/onc, hold off on repleting until polycythemia work up completed Hypertension -Cozaar 25mg PO daily, Zestril 5mg PO daily Ellipitcal shaped mass lesion right lung apex -CT chest showed 10 mm right upper lobe noncalcified nodule. Recommend further evaluation with biopsy, PET- CT, or follow-up CT at 3 months, and 9 months, and 24 months. 6 x 10 mm right upper lobe calcified nodule. Right apical scarring/fibrosis. Mild dependent bibasilar atelectasis. 2.5 x 3.1 cm low- density right renal mass measures approximately 23 Hounsfield units, indeterminate. Recommend correlation with renal ultrasound. Small hiatal hernia/distal esophageal wall thickening -F/U renal US PPX -Lovenox 40mg SC DAILY
--- NOTE | 2018-11-29 15:27 | US ---
Date of service: 11/29/2018 PROCEDURE: Ultrasound of the Kidneys HISTORY: Evaluate Renal mass/lesion COMPARISON: CT of the chest without contrast performed 11/28/18 TECHNIQUE: Sonogram of the kidneys. FINDINGS: RIGHT KIDNEY: Measures: 10.3 x 5.1 x 5.5 cm. No obstructing calculus or hydronephrosis. 3.4 x 3 x 2.6 cm upper pole septated anechoic avascular lesion consistent with complex cyst. LEFT KIDNEY: Measures: 9.5 x 5.3 x 5.1 cm. No obstructing calculus or hydronephrosis identified. OTHER FINDINGS: None. IMPRESSION: 3.4 x 3 x 2.6 cm upper pole septated anechoic avascular lesion consistent with complex cyst.
--- NOTE | 2018-11-29 22:41 | CP.PCM.PN ---
Subjective - Date & Time of Evaluation Date of Evaluation: 11/29/18 Time of Evaluation: 19:00 - Subjective Subjective: Feels dizzy Objective - Vital Signs/Intake and Output Vital Signs (last 24 hours): Temp Pulse Resp BP Pulse Ox 98.2 F 84 20 151/88 H 95 11/29/18 16:00 11/29/18 16:00 11/29/18 16:00 11/29/18 16:00 11/29/18 16:00 - Medications Medications: Current Medications Clopidogrel Bisulfate (Plavix) 75 mg PO DAILY [facility] Last Admin: 11/29/18 09:45 Dose: 75 mg Cyanocobalamin (Vitamin B12 1000 Mcg/Ml Inj) 1,000 mcg IM DAILY [facility] Stop: 12/03/18 23:59 Enoxaparin Sodium (Lovenox) 40 mg SC DAILY [facility] Last Admin: 11/29/18 09:45 Dose: 40 mg Famotidine (Pepcid) 20 mg PO BID [facility] Last Admin: 11/29/18 18:10 Dose: 20 mg Lisinopril (Zestril) 5 mg PO DAILY [facility] Last Admin: 11/29/18 09:45 Dose: 5 mg Losartan Potassium (Cozaar) 25 mg PO DAILY [facility] Last Admin: 11/29/18 09:45 Dose: 25 mg Meclizine HCl (Antivert) 25 mg PO Q8 [facility] Last Admin: 11/29/18 21:27 Dose: 25 mg Nitroglycerin (Nitro-Bid 2% Oint) 1 ea TOP Q6H PRN PRN Reason: Sbp greater than 160 Last Admin: 11/29/18 08:09 Dose: 1 ea Potassium Chloride (Klor-Con 10) 10 meq PO BRK [facility] Last Admin: 11/29/18 08:46 Dose: Not Given Rosuvastatin Calcium (Crestor) 10 mg PO HS [facility] Last Admin: 11/29/18 21:28 Dose: 10 mg - Labs Labs: 11/29/18 07:50 11/29/18 07:50 - Head Exam Head Exam: ATRAUMATIC - Eye Exam Eye Exam: Normal appearance - ENT Exam ENT Exam: Mucous Membranes Dry - Respiratory Exam Respiratory Exam: NORMAL BREATHING PATTERN - Cardiovascular Exam Cardiovascular Exam: +S1, +S2 - GI/Abdominal Exam GI & Abdominal Exam: Normal Bowel Sounds Assessment and Plan (1) Erythrocytosis Assessment & Plan: likely hemoncentrated from dehydration f/u P.vera w/u Status: Acute (2) B12 deficiency Assessment & Plan: okay to resume B12 supplementation as H/H normalized Status: Acute
[2018-11-30] MEDS: Nitroglycerin 2% Ointment Foilpak UD TOP PRN (02:54)
[2018-11-30 02:59] VITALS: RESP 20
--- NOTE | 2018-11-30 06:29 | CON ---
DATE: 11/28/2018 ATTENDING PHYSICIAN: Aide Rosado MD. ROOM NUMBER: 550, bed B. REASON FOR THE CONSULTATION: Dizziness. CHIEF COMPLAINT: The patient was brought into [facility] with history of two days' dizziness and losing balance. From neurological point of view, I was called into evaluate him for further management. HISTORY OF PRESENTING ILLNESS: The patient is a 57-year-old right-handed [place] Citizen male since just past Tuesday, he woke up with mild dizziness which got progressive with losing balance and could not able to walk better on his own. No history of fall. No history of trauma. No history of focal weakness, arms and legs. He never had any problem like this in the past. No history of hearing problem. No history of recent viral illness. No history of ____ bowel or bladder incontinence. The symptoms are more pronounced when he sit up and stand up and getting out of the bed. PAST MEDICAL HISTORY: Unremarkable. PERSONAL HISTORY; Denies smoking or alcohol use. ALLERGIES: NO KNOWN ALLERGIES. REVIEW OF SYSTEMS: A 12-point system being reviewed. From neuro, dizziness and losing balance. MEDICATIONS: Antivert, potassium supplement, Lovenox, . PHYSICAL EXAMINATION: VITAL SIGNS: Blood pressure 167/105, mean arterial pressure of 125, respiratory rate 18, pulse rate 70, and temperature 97.7. NECK: Supple. No carotid bruits. HEART: Sounds regular. EXTREMITIES: No edema in legs. NEUROLOGICAL: Mental status examination: He is awake, alert and oriented to person, place and time. Speech is clear. Naming, repetition, fluency, comprehension all within normal limits. Cranial nerve examination: Visual field intact. Pupils reactive to light. Extraocular movement normal. No nystagmus. No facial sensory deficit. No facial asymmetry. Hearing is normal. Tongue is midline. Good gag. Motor examination: Outstretched hand with eyes closed, no drift noted. Power is symmetric on either side. Deep tendon reflexes are mildly asymmetric; right hand showed 2+ reflexes and left arm 1+. Both knees are absent. Both ankles are absent. Plantars are downgoing. Sensory: Grossly intact. No cortical sensory loss. Coordination: [id number] test is intact. Gait, he could not able to sit up on his own, the body is leaning to backwards. He could not able to stand up on his own. CONCLUSION: The patient is presenting with possible thalamic dysfunction presenting with . This probably is small vessel disease. Considering his clinical presentation, stroke should ruled out. WORKUP: CT of the head reviewed by me showed no acute pathology. CT angiogram no acute , no evidence of dissection, occlusion or significant stenosis. There is an incidental finding of an elliptical shaped mass lesion over right region. EKG shows normal sinus rhythm. BLOOD WORKUP: WBC 7.6, hemoglobin 18.3. RBC 6.41 with hematocrit 54.9. Sodium 138, potassium 3.5, chloride 102, bicarbonate 23, BUN 11, creatinine 1 with GFR more than 60 and glucose 130. CK 93. Urinalysis negative. RECOMMENDATIONS: 1. His blood work is consistent with polycythemia. Considering his clinical neurological presentation with polycythemia, the patient presenting with hypercoagulable stage. 2. The patient should be given Plavix as stroke prophylaxis. The patient can be benefitted with angiotensin receptor blockers and statins. 3. For polycythemia, the patient is strongly recommended to be evaluated by gypsum roofer for further management. 4,. MRI of the brain also recommended. Carotid Doppler and echocardiogram also recommended to rule out any focal stenosis. Echocardiogram was recommended to rule out any cardiogenic cause. The patient's condition has been discussed. The patient should get bedrest. Should get out of bed with supervision only and rehabilitation, physical therapy should be initiated. Franco Bradford MD
--- NOTE | 2018-11-30 06:49 | CARD ---
APPROVED REPORT Date of service: 11/27/2018 EKG Measurement Heart [id number] <Conclusion> Normal sinus rhythm Possible Anterior infarct, age undetermined T wave abnormality, consider lateral ischemia Abnormal ECG
--- NOTE | 2018-11-30 07:54 | CP.PCM.PN ---
<Cheyanne Varner - Last Filed: 11/30/18 13:27> Subjective - Date & Time of Evaluation Date of Evaluation: 11/30/18 Time of Evaluation: 07:53 - Subjective Subjective: Medicine Progress Note - Dr Jayne Rosado's service Patient seen and examined at bedside. Per nursing no acute events overnight. Patient is resting comfortably and tolerating diet. Offers no complaints at this time. Objective - Vital Signs/Intake and Output Vital Signs (last 24 hours): Temp Pulse Resp BP Pulse Ox 98.1 F 80 20 143/91 H 99 11/30/18 05:13 11/30/18 05:13 11/30/18 05:13 11/30/18 05:13 11/30/18 05:13 Intake and Output: 11/30/18 11/30/18 06:59 18:59 Intake Total 240 Output Total 300 Balance -60 - Medications Medications: Current Medications Clopidogrel Bisulfate (Plavix) 75 mg PO DAILY [facility] Last Admin: 11/29/18 09:45 Dose: 75 mg Cyanocobalamin (Vitamin B12 1000 Mcg/Ml Inj) 1,000 mcg IM DAILY [facility] Stop: 12/03/18 23:59 Enoxaparin Sodium (Lovenox) 40 mg SC DAILY [facility] Last Admin: 11/29/18 09:45 Dose: 40 mg Famotidine (Pepcid) 20 mg PO BID [facility] Last Admin: 11/29/18 18:10 Dose: 20 mg Lisinopril (Zestril) 5 mg PO DAILY [facility] Last Admin: 11/29/18 09:45 Dose: 5 mg Losartan Potassium (Cozaar) 25 mg PO DAILY [facility] Last Admin: 11/29/18 09:45 Dose: 25 mg Meclizine HCl (Antivert) 25 mg PO Q8 [facility] Last Admin: 11/30/18 05:10 Dose: 25 mg Nitroglycerin (Nitro-Bid 2% Oint) 1 ea TOP Q6H PRN PRN Reason: Sbp greater than 160 Last Admin: 11/30/18 02:54 Dose: 1 ea Potassium Chloride (Klor-Con 10) 10 meq PO BRK [facility] Last Admin: 11/29/18 08:46 Dose: Not Given Rosuvastatin Calcium (Crestor) 10 mg PO HS [facility] Last Admin: 11/29/18 21:28 Dose: 10 mg - Labs Labs: 11/29/18 07:50 11/29/18 07:50 - Additional Findings Additional findings: - Head Exam Head Exam: ATRAUMATIC, NORMAL INSPECTION - Eye Exam Eye Exam: EOMI, Normal appearance, PERRL Pupil Exam: NORMAL ACCOMODATION - ENT Exam ENT Exam: Mucous Membranes Moist, Normal Oropharynx - Respiratory Exam Respiratory Exam: Clear to Ausculation Bilateral, NORMAL BREATHING PATTERN. absent: Prolonged Expiratory Phase, Respiratory Distress - Cardiovascular Exam Cardiovascular Exam: REGULAR RHYTHM, +S1 - GI/Abdominal Exam GI & Abdominal Exam: Soft, Normal Bowel Sounds. absent: Hyperactive Bowel Sounds - Back Exam Back Exam: NORMAL INSPECTION. absent: CVA tenderness (R), paraspinal tenderness - Neurological Exam Neurological Exam: Alert, Awake, CN II-XII Intact, Oriented x3 - Psychiatric Exam Psychiatric exam: Normal Affect, Normal Mood - Skin Skin Exam: Dry, Intact. absent: Diaphoretic, Pallor Assessment and Plan - Assessment and Plan (Free Text) Assessment: Dizziness, r/o cardioneurogenic causes Stable, afebrile Troponin negative x 3 On Meclizine 25mg PO Q8H, Plavix 75mg PO daily Homocysteine 16.1, Vitamin B12 194, Thyroid studies normal Patient to continue physical therapy Neurology on consult, Dr Bradford, help appreciated Imaging: Head CT: No acute intracranial abnormality.Mild sinus mucosal disease.If symptoms persists, consider correlation with MRI. CTA Head/Neck: There is no evidence of dissection, occlusion or significant stenosis. Marked asymmetry of the vertebral arteries right-sided which is hypoplastic compared to the left side. Note is made of an elliptical shaped mass lesion right lung apex which is of uncertain etiology and may be postinflammatory however neoplasm must be excluded. Recommend follow-up CT scan of the chest.. Biopsy should be considered as well to exclude primary carcinoma.. Biapical pleural thickening and parenchymal scarring right greater than left Brain MRI: No acute intracranial hemorrhage or infarction. Mild chronic white matter ischemic changes as described. Mild superior parietal cortical atrophic changes. Questionable small venous angioma right thalamus Echocardiogram: Grade I abnormal relaxation pattern Polycythemia Hgb: 18.3 on admission, now normalized F/U JAK2 mutation and EPO level Heme/onc Dr. Prasad consulted--> Help appreciated. Vitamin B12 deficiency Vitamin B12 194 Started on supplementation Hypertension -Cozaar 25mg PO daily Ellipitcal shaped mass lesion right lung apex -CT chest showed 10 mm right upper lobe noncalcified nodule. Recommend further evaluation with biopsy, PET- CT, or follow-up CT at 3 months, and 9 months, and 24 months. 6 x 10 mm right upper lobe calcified nodule. Right apical scarring/fibrosis. Mild dependent bibasilar atelectasis. 2.5 x 3.1 cm low- density right renal mass measures approximately 23 Hounsfield units, indeterminate. Recommend correlation with renal ultrasound. Small hiatal hernia/distal esophageal wall thickening -Renal US showed 3.4 x 3 x 2.6 cm upper pole septated anechoic avascular lesion consistent with complex cyst PPX -Lovenox 40mg SC DAILY -Pepcid 20mg PO BID Dispo: Patient is medically stable for discharge home. Patient discharged home with rolling walker and outpatient PT per inpatient PT recommendations. Please continue medications as prescribed. Plan discussed with Dr Jayne Varner DO PGY-2 <Mounika Rosado - Last Filed: 11/30/18 22:49> Objective - Vital Signs/Intake and Output Vital Signs (last 24 hours): Temp Pulse Resp BP Pulse Ox 98.3 F 86 20 133/82 97 11/30/18 07:00 11/30/18 07:00 11/30/18 07:00 11/30/18 07:00 11/30/18 12:00 - Labs Labs: 11/30/18 08:07 11/30/18 08:07 Assessment and Plan (1) Ambulatory dysfunction Status: Acute (2) B12 deficiency Status: Acute (3) Dizziness Status: Acute (4) Erythrocytosis Status: Acute (5) Tinnitus Status: Acute Attending/Attestation - Attestation I have personally seen and examined this patient.: Yes I have fully participated in the care of the patient.: Yes I have reviewed all pertinent clinical information, including history, physical exam and plan: Yes Notes (Text): 11/30/18 22:48 case seen and d.w staff and resident, concurred with finding and management.. Patient was admitted for the dizziness discharged with a follow-up in my office in 48
[2018-11-30 08:15] LABS: BASO % 0.7 % (0.0-2.0); EOS # 0.2 K/uL (0.0-0.7); EOS % 2.2 % (0.0-4.0); HEMOGLOBIN 16.6 g/dL (12.0-18.0); LYMPH # 1.6 K/uL (1.0-4.3); LYMPH % 23.4 % (20.0-40.0); MEAN CELL VOLUME 86.4 fL (80.0-94.0); MEAN CORPUSCULAR HEMOGLOBIN 29.4 pg (27.0-31.0); MEAN PLATELET VOLUME 9.3 fL (7.2-11.7); MONO # 0.4 K/uL (0.0-0.8); MONO % 6.1 % (0.0-10.0); NEUT # 4.7 K/uL (1.8-7.0); NEUT % 67.6 % (50.0-75.0); NRBC % 0.2 % (0.0-2.0); RBC 5.64 Mil/uL (4.40-5.90); RED CELL DISTRIBUTION WIDTH 14.7 % (11.5-14.5); WHITE BLOOD COUNT 6.9 K/uL (4.8-10.8)
[2018-11-30 08:46] LABS: ALB/GLOB RATIO 1.7 (1.0-2.1); ALBUMIN 4.2 g/dL (3.5-5.0); ALT/SGPT 12 U/L (21-72); AST/SGOT 23 U/L (17-59); BLOOD UREA NITROGEN 10 mg/dL (9-20); CALCIUM 9.2 mg/dl (8.6-10.4); GFR NON-AFRICAN AMERICAN > 60
[2018-11-30 08:47] VITALS: BP 133/82; PULSE 86; TEMP 98.3; O2SAT 97
[2018-11-30] MEDS: Potassium Chloride 10 mEq ER Tab PO SCH (09:38)
[2018-11-30] MEDS: Enoxaparin 40 mg Syringe SC SCH (09:38)
--- NOTE | 2018-11-30 22:50 | CP.PCM.DIS ---
Provider - Provider Date of Admission: 11/27/18 23:10 Attending physician: Aide Rosado MD Consults: 11/28/18 00:55 Neurology Consult Routine Comment: Consulting Provider: Franco Bradford Consulting Physician: Franco Bradford Reason for Consult: dizziness 11/28/18 13:37 Hematology Oncology Consult Routine Comment: Consulting Provider: Gregg Prasad Consulting Physician: Gregg Prasad Reason for Consult: polycythemia Time Spent in preparation of Discharge (in minutes): 20 Diagnosis - Discharge Diagnosis (1) Ambulatory dysfunction Status: Acute (2) B12 deficiency Status: Acute (3) Dizziness Status: Acute (4) Erythrocytosis Status: Acute (5) Tinnitus Status: Acute Hospital Course - Lab Results Lab Results: Most Recent Lab Values WBC 6.9 K/uL (4.8-10.8) 11/30/18 08:07 RBC 5.64 Mil/uL (4.40-5.90) 11/30/18 08:07 Hgb 16.6 g/dL (12.0-18.0) 11/30/18 08:07 Hct 48.7 % (35.0-51.0) 11/30/18 08:07 MCV 86.4 fL (80.0-94.0) 11/30/18 08:07 MCH 29.4 pg (27.0-31.0) 11/30/18 08:07 MCHC 34.0 g/dL (33.0-37.0) 11/30/18 08:07 RDW 14.7 % (11.5-14.5) H 11/30/18 08:07 Plt Count 238 K/uL (130-400) 11/30/18 08:07 MPV 9.3 fL (7.2-11.7) 11/30/18 08:07 Neut % (Auto) 67.6 % (50.0-75.0) 11/30/18 08:07 Lymph % (Auto) 23.4 % (20.0-40.0) 11/30/18 08:07 [place] % (Auto) 6.1 % (0.0-10.0) 11/30/18 08:07 Eos % (Auto) 2.2 % (0.0-4.0) 11/30/18 08:07 Baso % (Auto) 0.7 % (0.0-2.0) 11/30/18 08:07 Neut # (Auto) 4.7 K/uL (1.8-7.0) 11/30/18 08:07 Lymph # (Auto) 1.6 K/uL (1.0-4.3) 11/30/18 08:07 [place]ye # (Auto) 0.4 K/uL (0.0-0.8) 11/30/18 08:07 Eos # (Auto) 0.2 K/uL (0.0-0.7) 11/30/18 08:07 Baso # (Auto) 0.0 K/uL (0.0-0.2) 11/30/18 08:07 Retic Count 0.8 % (0.5-1.5) 11/29/18 07:50 Sodium 136 mmol/L (132-148) 11/30/18 08:07 Potassium 4.1 mmol/L (3.6-5.2) 11/30/18 08:07 Chloride 103 mmol/L (98-107) 11/30/18 08:07 Carbon Dioxide 26 mmol/L (22-30) 11/30/18 08:07 Anion Gap 11 (10-20) 11/30/18 08:07 BUN 10 mg/dL (9-20) 11/30/18 08:07 Creatinine 1.1 mg/dL (0.8-1.5) 11/30/18 08:07 Est GFR ( Amer) > 60 11/30/18 08:07 Est GFR (Non-Af Amer) > 60 11/30/18 08:07 POC Glucose (mg/dL) 113 mg/dL (65-110) H 11/27/18 20:13 Random Glucose 100 mg/dL (75-110) 11/30/18 08:07 Hemoglobin A1c 6.2 % (4.2-6.5) 11/28/18 13:58 Calcium 9.2 mg/dl (8.6-10.4) 11/30/18 08:07 Erythropoietin 17.2 mIU/mL (2.6-18.5) 11/28/18 19:32 Ferritin 13.6 ng/mL 11/29/18 07:50 Total Bilirubin 0.9 mg/dL (0.2-1.3) 11/30/18 08:07 AST 23 U/L (17-59) 11/30/18 08:07 ALT 12 U/L (21-72) L 11/30/18 08:07 Alkaline Phosphatase 54 U/L (38-126) 11/30/18 08:07 Total Creatine Kinase 42 U/L (55-170) L 11/29/18 00:30 CK-MB (Mass) 0.23 ng/mL (0.0-3.38) 11/29/18 00:30 Troponin I < 0.0120 ng/mL (0.00-0.120) 11/29/18 00:30 Total Protein 6.6 g/dL (6.3-8.3) 11/30/18 08:07 Albumin 4.2 g/dL (3.5-5.0) 11/30/18 08:07 Globulin 2.4 gm/dL (2.2-3.9) 11/30/18 08:07 Albumin/Globulin Ratio 1.7 (1.0-2.1) 11/30/18 08:07 Vitamin B12 194 pg/mL (239-931) L 11/28/18 13:58 Folate 6.7 ng/mL 11/28/18 13:58 Homocysteine 16.1 umol/L (6.6-14.8) H 11/28/18 13:58 Free T4 0.83 ng/dL (0.78-2.19) 11/28/18 13:58 TSH 3rd Generation 3.56 mIU/L (0.46-4.68) 11/28/18 13:58 Urine Color Yellow (YELLOW) 11/27/18 21:31 Urine Clarity Clear (Clear) 11/27/18 21:31 Urine pH 5.0 (5.0-8.0) 11/27/18 21:31 Ur Specific [place] 1.010 (1.003-1.030) 11/27/18 21:31 Urine Protein Negative mg/dL (NEGATIVE) 11/27/18 21:31 Urine Glucose (UA) Normal mg/dL (Normal) 11/27/18 21:31 Urine Ketones Negative mg/dL (NEGATIVE) 11/27/18 21:31 Urine Blood Negative (NEGATIVE) 11/27/18 21:31 Urine Nitrate Negative (NEGATIVE) 11/27/18 21:31 Urine Bilirubin Negative (NEGATIVE) 11/27/18 21:31 Urine Urobilinogen Normal mg/dL (0.2-1.0) 11/27/18 21:31 Ur Leukocyte Esterase Neg [place]/uL (Negative) 11/27/18 21:31 Urine WBC (Auto) < 1 /hpf (0-5) 11/27/18 21:31 Urine RBC (Auto) < 1 /hpf (0-3) 11/27/18 21:31 - Hospital Course Hospital Course: Dizziness, r/o cardioneurogenic causes Stable, afebrile Troponin negative x 3 On Meclizine 25mg PO Q8H, Plavix 75mg PO daily Homocysteine 16.1, Vitamin B12 194, Thyroid studies normal Patient to continue physical therapy Neurology on consult, Dr Bradford, help appreciated Imaging: Head CT: No acute intracranial abnormality.Mild sinus mucosal disease.If symptoms persists, consider correlation with MRI. CTA Head/Neck: There is no evidence of dissection, occlusion or significant stenosis. Marked asymmetry of the vertebral arteries right-sided which is hypoplastic compared to the left side. Note is made of an elliptical shaped mass lesion right lung apex which is of uncertain etiology and may be postinflammatory however neoplasm must be excluded. Recommend follow-up CT scan of the chest.. Biopsy should be considered as well to exclude primary carcinoma.. Biapical pleural thickening and parenchymal scarring right greater than left Brain MRI: No acute intracranial hemorrhage or infarction. Mild chronic white matter ischemic changes as described. Mild superior parietal cortical atrophic changes. Questionable small venous angioma right thalamus Echocardiogram: Grade I abnormal relaxation pattern Polycythemia Hgb: 18.3 on admission, now normalized F/U JAK2 mutation and EPO level Heme/onc Dr. Prasad consulted--> Help appreciated. Vitamin B12 deficiency Vitamin B12 194 Started on supplementation Hypertension -Cozaar 25mg PO daily Ellipitcal shaped mass lesion right lung apex -CT chest showed 10 mm right upper lobe noncalcified nodule. Recommend further evaluation with biopsy, PET- CT, or follow-up CT at 3 months, and 9 months, and 24 months. 6 x 10 mm right upper lobe calcified nodule. Right apical scarring/fibrosis. Mild dependent bibasilar atelectasis. 2.5 x 3.1 cm low- density right renal mass measures approximately 23 Hounsfield units, indeterminate. Recommend correlation with renal ultrasound. Small hiatal hernia/distal esophageal wall thickening -Renal US showed 3.4 x 3 x 2.6 cm upper pole septated anechoic avascular lesion consistent with complex cyst PPX -Lovenox 40mg SC DAILY -Pepcid 20mg PO BID Dispo: Patient is medically stable for discharge home. Patient discharged home with rolling walker and outpatient PT per inpatient PT recommendations. Please continue medications as prescribed. Plan discussed with Dr Jayne Rosado Discharge Exam - Head Exam Head Exam: ATRAUMATIC Discharge Plan - Discharge Medications Prescriptions: Losartan [Cozaar] 25 mg PO DAILY #30 tab Rosuvastatin Calcium [Crestor] 10 mg PO HS #30 tab Meclizine [Meclizine*] 25 mg PO Q8 PRN #30 tab PRN Reason: Dizziness Clopidogrel [Plavix] 75 mg PO DAILY #30 tab Walker [Rolling Walker] 1 dev XX PRN PRN #1 dev PRN Reason: gait instability Cyanocobalamin [Vitamin B12 1000 mcg Tab] 1,000 mcg PO DAILY #30 tab - Follow Up Plan Condition: FAIR Disposition: HOME/ ROUTINE Instructions: Tinnitus (Ringing in the Ears), Heart Healthy Diet, Preventing Falls, Dizziness, Nonvertigo, (DC), Vitamin B12 Deficiency (DC), Clopidogrel, Cyanocobalamin, Losartan, Meclizine, Rosuvastatin Additional Instructions: Patient is cleared for discharge home Please follow up with Dr Jayne Rosado (PMD) within 1 week Please follow up with Dr Rocha (Pulmonology) for lung nodules seen on CT chest Please follow up with Dr Prasad (Pharmacy Clinical Specialist) in regards to your blood work results Please follow up with Dr Bradford (Neurology) If symptoms worsen, return to the emergency department Referrals: Ambrose Rocha MD [Staff Provider] - Gregg Prasad MD [Staff Provider] - Franco Bradford MD [Staff Provider] - Mounika Rosado MD [Staff Provider] -
--- NOTE | 2018-12-01 12:29 | EEG ---
DATE: 11/28/2018 ELECTROENCEPHALOGRAM REPORT INTERPRETATIONS: This is a 16-channel electroencephalogram of awake and drowsy adult. During the study, photic stimulation was performed. Hyperventilation was not performed. The resting electroencephalogram to begin with 20-30 microvolt, diffuse high theta mixed with low alpha activities seen, which was followed with high amplitude 4-5 Hz. Delta activity seen, which consisted with early drowsiness. Later, the electrical activities well-organized to form 9-11 Hz. Moderate voltage alpha activity seen at both posterior dominant region. The photic stimulation did not evoke driving response noted at 2-20 Hz. IMPRESSION: This is a normal electroencephalogram of awakened and drowsy adult. During the study, neither electroencephalographic paroxysmal activities nor focal slowing noted. Franco Bradford MD
== END 2018-11-30 15:27 | disposition home or self-care (01) ==
LOC: C.ER 19:20 → C.9E 23:10 → C.5S 11-28 01:48 → C.6T 11-30 02:25
PROVIDERS: ADMIT Internal Medicine Nephrology; ATTEND Internal Medicine Nephrology
DX: H93.19 Tinnitus, unspecified ear (principal); E86.0 Dehydration; E53.8 Deficiency of other specified B group vitamins; I10 Essential (primary) hypertension; D75.1 Secondary polycythemia; J98.11 Atelectasis; R32 Unspecified urinary incontinence; K22.9 Disease of esophagus, unspecified; K44.9 Diaphragmatic hernia without obstruction or gangrene; R42 Dizziness and giddiness
CPT/HCPCS: 36415; 70450; 70496; 70498; 70551; 71045; 71250; 76770; 80053; 81001; 81270; 82607; 82668; 82728; 82746; 82948; 83036; 83090; 84439; 84443; 84484; 85025; 85044; 85810; 93005; 93306; 93880; 95812; 96360; 96374; 97116; 97161; 97530; 99285; G0378; G8978; G8979; J1650; J2405; J3420; J7030; Q9967